=== PATIENT | female | born 1985 | race Caucasian/White ===

== ENCOUNTER → 2016-03-01 17:04 | Outpatient (CLI) | payer MEDICAID ==
[~2016-03-01 17:04] MED LIST: ACETAMINOPHEN500 M1 PO; BENADRYL25 MG PO; BENADRYL50 MG PO; PRENATAL COMPLE1 TAB PO
[2016-03-01 18:12] LABS: APPEARANCE CLEAR (CLEAR); BILIRUBIN NEGATIVE (NEGATIVE); COLOR YELLOW (YELLOW); GLUCOSE NEGATIVE (NEGATIVE); KETONE NEGATIVE (NEGATIVE); LEUKOCYTE ESTERASE NEGATIVE (NEGATIVE); NITRITE NEGATIVE (NEGATIVE); PROTEIN NEGATIVE (NEGATIVE); SPECIFIC GRAVITY 1.015 (1.005-1.020); UROBILINOGEN NORMAL (NORMAL)
== END | disposition home or self-care (01) ==
LOC: D.LDO 17:04
PROVIDERS: Obstetrics & Gynecology
DX: Z34.83 Encounter for supervision of other normal pregnancy, third trimester (principal); Z3A.29 29 weeks gestation of pregnancy; R51 Headache

== ENCOUNTER → 2016-03-16 12:51 | Outpatient (CLI) | payer MEDICAID | END | disposition home or self-care (01) | LOC: D.LDO 12:51 | DX: O36.8130 Decreased fetal movements, third trimester, not applicable or unspecified (principal); Z3A.31 31 weeks gestation of pregnancy ==

== ENCOUNTER → 2016-03-21 14:45 | Outpatient (CLI) | payer MEDICAID ==
[2016-03-21 16:33] LABS: APPEARANCE HAZY (CLEAR); BILIRUBIN NEGATIVE (NEGATIVE); COLOR DK YELLOW (YELLOW); GLUCOSE NEGATIVE (NEGATIVE); KETONE NEGATIVE (NEGATIVE); LEUKOCYTE ESTERASE TRACE (NEGATIVE); NITRITE NEGATIVE (NEGATIVE); PROTEIN TRACE mg/dL (NEGATIVE); SPECIFIC GRAVITY 1.015 (1.005-1.020); UROBILINOGEN NORMAL (NORMAL)
[2016-03-21 16:35] LABS: BACTERIA MODERATE /hpf (NONE SEEN); MUCUS <1+ /lpf (NONE SEEN); RED CELLS - URINE OCC /hpf (0-5); YEAST RARE /hpf (NONE SEEN)
[2016-03-21 17:15] LABS: ALBUMIN 2.3 g/dL (3.4-5.0); ALKALINE PHOSPHATASE 117 U/L (46-116); ALT (SGPT) 37 U/L (10-68); BILIRUBIN - TOTAL 0.17 mg/dL (0.2-1.3); CALC OSMOLALITY 272 mosm/kg (275-300); CALCIUM 8.7 mg/dL (8.5-10.1); CARBON DIOXIDE 23.4 mmol/L (21.0-32.0); CHLORIDE - SERUM 104 mmol/L (98-107); CREATININE - SERUM 0.5 mg/dL (0.6-1.3); GLUCOSE 85 mg/dL (74-106); POTASSIUM - SERUM 3.9 mmol/L (3.5-5.1); PROTEIN - SERUM 6.4 g/dL (6.4-8.2); SODIUM 138 mmol/L (136-145); UREA NITROGEN 8 mg/dL (7-18); eGFR NON AFRICAN AMERICAN > 90 mL/min (90-120)
[2016-03-27 03:09] LABS: CHENODEOXYCHOLIC ACID 2.1 umol/L (()); CHOLIC ACID 4.5 umol/L (()); TOTAL BILE ACIDS 8.6 umol/L (()); URSODEOXYCHOLIC ACID <0.10 umol/L (())
== END | disposition home or self-care (01) ==
LOC: D.LDO 14:45
PROVIDERS: Obstetrics & Gynecology
DX: O36.8130 Decreased fetal movements, third trimester, not applicable or unspecified (principal); Z3A.31 31 weeks gestation of pregnancy

== ENCOUNTER → 2016-03-26 17:24 | Outpatient (CLI) | payer MEDICAID | END | disposition home or self-care (01) | LOC: D.LDO 17:24 | DX: O24.419 Gestational diabetes mellitus in pregnancy, unspecified control (principal) ==

== ENCOUNTER → 2016-03-27 10:24 | Outpatient (CLI) | payer MEDICAID ==
--- NOTE | 2016-03-27 14:57 | NUR ---
Nutrition education for JUANITO: Pt reports she is now drinking only water and some milk. Pt is still using a little sugar in her coffee (now only drinking 1 cup of coffee a day). Pt skips breakfast sometimes; eats nonstarrchy vegetables almost daily; eats pizza every now and then. Reviewed CHO containing foods and th e affect CHO have on glucose. Stressed the importance of eating at consistent meal times to keep glucose under good control. Reviewed sample menus with emphasis on CHO. Pt agrees she has been overeating CHO foods which has caused her to have some high readings. Pt has been checking glucose 4 times a day and recording. Pt with good understanding of information provided. Provided pt with printed diet information and RDN name and phone number. RDN will be available if needed. Thank you for the consult.
== END | disposition home or self-care (01) ==
LOC: D.FANS 03-07 10:30
DX: O24.419 Gestational diabetes mellitus in pregnancy, unspecified control (principal)

== ENCOUNTER → 2016-03-30 11:09 | Outpatient (CLI) | payer MEDICAID ==
[2016-03-30 12:52] LABS: ALBUMIN 2.1 g/dL (3.4-5.0); ALKALINE PHOSPHATASE 197 U/L (46-116); ALT (SGPT) 514 U/L (10-68); BILIRUBIN - DIRECT 0.24 mg/dL (0.00-0.30); BILIRUBIN - INDIRECT 0.14 mg/dL (0.00-1.00); BILIRUBIN - TOTAL 0.38 mg/dL (0.2-1.3); CALC OSMOLALITY 272 mosm/kg (275-300); CALCIUM 8.5 mg/dL (8.5-10.1); CHLORIDE - SERUM 104 mmol/L (98-107); CREATININE - SERUM 0.5 mg/dL (0.6-1.3); GLUCOSE 107 mg/dL (74-106); POTASSIUM - SERUM 3.9 mmol/L (3.5-5.1); PROTEIN - SERUM 6.2 g/dL (6.4-8.2); SODIUM 137 mmol/L (136-145); UREA NITROGEN 9 mg/dL (7-18); URIC ACID 5.5 mg/dL (2.6-7.2); eGFR NON AFRICAN AMERICAN > 90 mL/min (90-120)
[2016-04-03 03:08] LABS: CHENODEOXYCHOLIC ACID 3.3 umol/L (()); CHOLIC ACID 16 umol/L (()); DEOXYCHOLIC ACID 2.5 umol/L (()); TOTAL BILE ACIDS 22 umol/L (()); URSODEOXYCHOLIC ACID <0.10 umol/L (())
== END | disposition home or self-care (01) ==
LOC: D.LDO 11:09
PROVIDERS: Obstetrics & Gynecology
DX: O24.419 Gestational diabetes mellitus in pregnancy, unspecified control (principal); Z3A.33 33 weeks gestation of pregnancy

== ENCOUNTER → 2016-05-18 10:33 | Outpatient (CLI) | payer MEDICAID | END | disposition home or self-care (01) | LOC: D.US 10:30 | DX: N63 Unspecified lump in breast (principal) ==

== ENCOUNTER 2016-08-17 17:58 | Emergency (ER) | payer BC | END 2016-08-17 20:31 | disposition home or self-care (01) | LOC: D.ER 17:58 | DX: S06.0X9A Concussion with loss of consciousness of unspecified duration, initial encounter (principal); V43.52XA Car driver injured in collision with other type car in traffic accident, initial encounter; Y93.89 Activity, other specified; Y92.410 Unspecified street and highway as the place of occurrence of the external cause; T14.8 Other injury of unspecified body region; S20.219A Contusion of unspecified front wall of thorax, initial encounter; I10 Essential (primary) hypertension; F17.200 Nicotine dependence, unspecified, uncomplicated ==

== ENCOUNTER 2018-03-14 11:47 | Emergency (ER) | payer MEDICAID ==
[~2018-03-14] VITALS: Ht 165.1 cm; Wt 86.4 kg
[2018-03-14 12:12] VITALS: BP 136/72; Ht 165.1 cm; Wt 86.4 kg
[2018-03-14 12:35] LABS: BASOPHILS 0.3 % (0-2); HEMATOCRIT 41.1 % (36.0-48.0); HEMOGLOBIN 13.3 g/dL (12-16); IMMATURE GRANULOCYTES 0.4 % (0-5); MCH 28.7 pg (26.0-34.0); MCHC 32.4 g/dL (31.0-37.0); MCV 88.8 fL (80.0-100.0); MEAN PLATELET VOLUME 9.7 fL (7.4-10.4); NEUTROPHILS 67.3 % (40-80); PLATELET COUNT 371 10x3/uL (130-400); RBC 4.63 10x6/uL (4.00-5.40); RDW 16.8 % (11.5-14.5); WBC 17.2 10x3/uL (4.8-10.8)
[2018-03-14 12:59] LABS: ALKALINE PHOSPHATASE 87 U/L (46-116); ALT (SGPT) 37 U/L (10-68); BILIRUBIN - TOTAL 0.22 mg/dL (0.2-1.3); CALC OSMOLALITY 275 mosm/kg (275-300); CALCIUM 9.1 mg/dL (8.5-10.1); CARBON DIOXIDE 27.2 mmol/L (21.0-32.0); CHLORIDE - SERUM 102 mmol/L (98-107); CREATININE - SERUM 0.8 mg/dL (0.6-1.3); GLUCOSE 84 mg/dL (74-106); POTASSIUM - SERUM 3.8 mmol/L (3.5-5.1); SODIUM 140 mmol/L (136-145); UREA NITROGEN 8 mg/dL (7-18); eGFR NON AFRICAN AMERICAN 87 mL/min (90-120)
[2018-03-14 13:03] LABS: APPEARANCE CLEAR (CLEAR); BILIRUBIN NEGATIVE (NEGATIVE); COLOR YELLOW (YELLOW); GLUCOSE NEGATIVE (NEGATIVE); KETONE NEGATIVE (NEGATIVE); NITRITE NEGATIVE (NEGATIVE); PROTEIN NEGATIVE (NEGATIVE); SPECIFIC GRAVITY 1.005 (1.005-1.020); UROBILINOGEN NORMAL (NORMAL)
[2018-03-14 13:04] LABS: BACTERIA MODERATE /hpf (NONE SEEN); EPITHELIAL CELLS 0-5 /hpf (0-5); MUCUS <1+ /lpf (NONE SEEN); RED CELLS - URINE OCC /hpf (0-5); YEAST RARE /hpf (NONE SEEN)
[2018-03-14 13:21] LABS: HCG - QUANTITATIVE (MATERNAL) 10730 mIU/mL
[2018-03-21 12:21] LABS: CHLAMYDIA TRACHOMATIS, NAA Negative (Negative)
[2018-03-25 13:35] VITALS: Ht 165.1 cm; Wt 86.4 kg
== END 2018-03-14 17:07 | disposition home or self-care (01) ==
LOC: D.ER 11:47
PROVIDERS: Family Medicine
DX: O20.9 Hemorrhage in early pregnancy, unspecified (principal); Z3A.01 Less than 8 weeks gestation of pregnancy; F17.200 Nicotine dependence, unspecified, uncomplicated

== ENCOUNTER 2018-03-18 16:18 | Observation (INO) | payer MEDICAID ==
[~2018-03-18] VITALS: Ht 165.1 cm; Wt 86.4 kg
[2018-03-18 16:28] VITALS: Ht 165.1 cm; Wt 86.4 kg
[2018-03-18 16:57] LABS: BASOPHILS 0.3 % (0-2); EOSINOPHILS 1.3 % (0-7); HEMATOCRIT 37.1 % (36.0-48.0); IMMATURE GRANULOCYTES 0.3 % (0-5); LYMPHOCYTES 20.2 % (15-50); MCH 28.7 pg (26.0-34.0); MCHC 32.3 g/dL (31.0-37.0); MCV 88.8 fL (80.0-100.0); MEAN PLATELET VOLUME 9.7 fL (7.4-10.4); MONOCYTES 8.9 % (2-11); PLATELET COUNT 348 10x3/uL (130-400); RBC 4.18 10x6/uL (4.00-5.40); RDW 17.1 % (11.5-14.5)
--- NOTE | 2018-03-18 17:09 | NUR ---
PT STABLE, CALL LIGHT WITHIN REACH, FRIEND AT BEDSIDE, WILL CONTINUE TO MONITOR.
[2018-03-18 18:00] VITALS: BP 138/66
--- NOTE | 2018-03-18 18:09 | NUR ---
PT STABLE, PROVIDED BRIEF AND PADS. PT RATES PAIN 5/10 AND WARM PACK PROVIDED, PT STABLE, CALL LIGHT WITHIN REACH, WILL CONTINUE TO MONITOR.
[2018-03-18 18:23] LABS: ALKALINE PHOSPHATASE 91 U/L (46-116); ALT (SGPT) 37 U/L (10-68); BILIRUBIN - TOTAL 0.09 mg/dL (0.2-1.3); CALC OSMOLALITY 281 mosm/kg (275-300); CARBON DIOXIDE 28.7 mmol/L (21.0-32.0); CHLORIDE - SERUM 105 mmol/L (98-107); CREATININE - SERUM 0.7 mg/dL (0.6-1.3); GLUCOSE 92 mg/dL (74-106); PROTEIN - SERUM 6.4 g/dL (6.4-8.2); SODIUM 142 mmol/L (136-145); UREA NITROGEN 9 mg/dL (7-18); eGFR NON AFRICAN AMERICAN > 90 mL/min (90-120)
[2018-03-18 18:48] LABS: HCG - QUANTITATIVE (MATERNAL) 7137 mIU/mL
[2018-03-18 19:00] VITALS: BP 131/71
--- NOTE | 2018-03-18 19:15 | NUR ---
ASSUMED CARE OF PATIENT, RESTING ON STRETCHER WITH MOTHER AT BEDSIDE. PATIENT WAITING FOR ULTRASOUND, STATES HER PAIN IS DOWN TO A 5/10 ON PAIN SCALE, NS INFUSING, VITAL SIGNS STABLE AT THIS TIME.
--- NOTE | 2018-03-18 19:19 | NUR ---
PT REPORT HANDED OFF TO JENNIFER LIANG. PT STABLE, CALL LIGHT WITHIN REACH, WILL CONTINUE TO MONITOR.
[2018-03-18 20:06] VITALS: BP 132/77
--- NOTE | 2018-03-18 20:10 | NUR ---
PATIENT TO ULTRASOUND VIA WHEELCHAIR PER TECH.
[2018-03-18 21:30] VITALS: BP 104/56
--- NOTE | 2018-03-18 21:45 | NUR ---
PT SITTING UP ON STRETCHER EATING A SANDWICH BOX, STATES SHE FEELS A LITTLE BETTER. ASSISTED TO THE BATHROOM, SHE STATES SHE IS STILL BLEEDING BUT IT HAS SLOWED DOWN.
--- NOTE | 2018-03-18 23:20 | NUR ---
PT TO LABOR UNIT ROOM 1278 FOR OVERNIGHT OBSERVATION. PT TO BED, BLEEDING LIGHT AT THIS TIME, PAD JUST CHANGED PRIOR TO ARRIVAL FROM ER. PATIENT MEDICATED WITH MORPHINE IN ER AND IS FALLING ASLEEP, UNABLE TO PERFORM ADMISSION ASSESSMENT AT THIS TIME.
--- NOTE | 2018-03-18 23:25 | NUR ---
SIDE RAILS UPX2, CALL REDD IN REACH. WILL MONITOR.
--- NOTE | 2018-03-19 00:05 | NUR ---
PT RESTING QUIETLY WITH EYES CLOSED, RESPIRATIONS EVEN AND NON LABORED, NO DISTRESS NOTED. BED LOCKED IN LOW POSITION, SIDE RAILS UP X2, CALL REDD AND TRAY TABLE IN REACH, WILL CONTINUE TO MONITOR.
--- NOTE | 2018-03-19 01:30 | NUR ---
PT RESTING QUIETLY WITH EYES CLOSED, NO DISTRESS NOTED. RESPIRATIONS EVEN AND NON LABORED. BED REMAINS LOCKED IN LOW POSITION, SIDE RAILS UPX2, CALL REDD AND TRAY TABLE IN REACH. WILL CONTINUE TO MONITOR.
--- NOTE | 2018-03-19 02:22 | NUR ---
IN TO CHECK ON PATIENT AT THIS TIME, PT EASILY AROUSED FROM SLEEP. PT UP TO BATHROOM. PT C/O CRAMPING PAIN AND REQUESTING PAIN MEDICATION.
--- NOTE | 2018-03-19 02:30 | NUR ---
PT BACK TO BED, VOIDED WITHOUT DIFFICULTY, PAD CHANGED, BLEEDING SMALL, RUBRA, NO CLOTS.
--- NOTE | 2018-03-19 02:31 | NUR ---
MOTRIN 600 MG PO PER MD ORDERS FOR CRAMPING PAIN
[2018-03-19 02:33] VITALS: BP 102/53
--- NOTE | 2018-03-19 05:44 | NUR ---
MORPHINE 4MG IN 9ML NORMAL SALINE GIVEN SLOW IVP AT THIS TIME PER MD ORDERS AND PATIENT REQUEST.
--- NOTE | 2018-03-19 05:50 | NUR ---
pulse ox placed at this time
[2018-03-19 07:11] VITALS: BP 94/50
--- NOTE | 2018-03-19 07:40 | NUR ---
DR CAAL HERE TO SEE PT. VERBAL DISCHARGE ORDERS RECEIVED.
--- NOTE | 2018-03-19 08:00 | NUR ---
SALINE LOCK REMOVED WITH CATH TIP INTACT. PRESSURE HELD AND BANDAIDE APPLIED. REG DIET SERVED.
--- NOTE | 2018-03-19 08:10 | NUR ---
PHONED DR CAAL FOR REVIEW OF DISCHARGE ORDER. NEW ORDERS RECEIVED.
[2018-03-19] MEDS ORDERED: CYTOTEC200 MCG PO (08:14)
[2018-03-19] MEDS ORDERED: HYDROCODON-ACE1 EAC7 PO (08:20)
--- NOTE | 2018-03-19 09:04 | NUR ---
DISCHARGE INST VERBAL AND WRITTEN GIVEN. PT STATES UNDERSTANDING. PT STATES THAT SHE HAD AN APPOINTMENT WITH [employer] AT HER [facility] [employer] THIS AM AT 0930. PT INSISTS THAT SHE WALK OUT OF HOSPITAL BUT STATES THAT SHE WILL NOT DRIVE AND WILL CALL SOMEONE TO PICK HER UP. STRESSED THE IMPORTANCE OF NOT DRIVING WHILE TAKING PAIN MEDICATION.
--- NOTE | 2018-03-19 09:20 | NUR ---
PT AMBULATES OUT OF ROOM. WHEN ASK STATES THAT SHE FEELS A LITTLE LIGHT HEADED. PT AGREES TO W/C BUT INSISTS THAT SHE WAIT FOR RIDE AT FRONT OF HOSPITAL. TO FRONT DOOR VIA W/C. DENIES OTHER NEEDS.
== END 2018-03-19 09:20 | disposition home or self-care (01) ==
LOC: D.ER 16:18 → D.EDHOLD 22:10 → D.LD 22:10 → OBSVTIME 22:10 → D.LD 22:21
PROVIDERS: Emergency Medicine; ADMIT Obstetrics & Gynecology
DX: O03.4 Incomplete spontaneous abortion without complication (principal)

== ENCOUNTER 2018-03-25 12:45 | Day surgery (SDC) | payer MEDICAID ==
[~2018-03-25] VITALS: Ht 165.1 cm; Wt 83.9 kg
[~2018-03-25 12:45] MED LIST changes: +CYTOTEC200 MCG PO; +HYDROCODON-ACE1 EAC7 PO
[2018-03-25 13:18] LABS: BASOPHILS 0.5 % (0-2); EOSINOPHILS 1.4 % (0-7); HEMATOCRIT 31.4 % (36.0-48.0); HEMOGLOBIN 9.9 g/dL (12-16); IMMATURE GRANULOCYTES 0.4 % (0-5); LYMPHOCYTES 26.1 % (15-50); MCH 28.2 pg (26.0-34.0); MCHC 31.5 g/dL (31.0-37.0); MCV 89.5 fL (80.0-100.0); MEAN PLATELET VOLUME 9.2 fL (7.4-10.4); MONOCYTES 5.6 % (2-11); PLATELET COUNT 418 10x3/uL (130-400); RBC 3.51 10x6/uL (4.00-5.40); RDW 16.9 % (11.5-14.5); WBC 13.1 10x3/uL (4.8-10.8)
[2018-03-25 13:35] VITALS: BP 118/65; Ht 165.1 cm; Wt 83.9 kg
== END 2018-03-25 17:15 | disposition home or self-care (01) ==
LOC: D.OPS 12:45
PROVIDERS: Obstetrics & Gynecology
DX: O03.4 Incomplete spontaneous abortion without complication (principal)

== ENCOUNTER 2018-07-31 19:00 | Outpatient (CLI) | payer MEDICAID ==
[2018-03-25 13:35] VITALS: BMI 30.8
== END 2018-07-31 23:59 | disposition home or self-care (01) ==
LOC: D.MAMMO 19:00
PROVIDERS: ATTEND Obstetrics & Gynecology
DX: R92.8 Other abnormal and inconclusive findings on diagnostic imaging of breast (principal)

== ENCOUNTER 2018-09-27 20:38 | Emergency (ER) | payer MEDICAID ==
[~2018-09-27] VITALS: Ht 165.1 cm; Wt 72.7 kg
[2018-09-27 21:19] VITALS: Ht 165.1 cm; Wt 72.7 kg
[2018-09-27] MEDS ORDERED: HYDROCODON-ACE1 EAC7 PO (22:13)
[2018-09-27] MEDS ORDERED: CLEOCIN HCL300 MG PO (22:13)
[2018-09-27 22:29] VITALS: BP 121/72
== END 2018-09-27 22:30 | disposition home or self-care (01) ==
LOC: D.ER 20:38
DX: K02.9 Dental caries, unspecified (principal); K04.7 Periapical abscess without sinus

== ENCOUNTER 2020-07-05 22:52 | Emergency (ER) | payer BC ==
[~2020-07-05] VITALS: Ht 165.1 cm; Wt 72.7 kg
[~2020-07-05 22:52] MED LIST changes: +CLEOCIN HCL300 MG PO
[2020-07-05 22:56] VITALS: Ht 165.1 cm; Wt 72.7 kg
[2020-07-05 23:41] LABS: BASOPHILS 0.6 % (0-2); EOSINOPHILS 1.1 % (0-7); HEMATOCRIT 39.9 % (36.0-48.0); LYMPHOCYTES 20.1 % (15-50); MCH 29.8 pg (26.0-34.0); MCHC 32.6 g/dL (31.0-37.0); MCV 91.4 fL (80.0-100.0); MEAN PLATELET VOLUME 7.3 fL (7.4-10.4); MONOCYTES 9.3 % (2-11); NEUTROPHILS 68.9 % (40-80); PLATELET COUNT 377 10x3/uL (130-400); RBC 4.37 10x6/uL (4.00-5.40); RDW 14.3 % (11.5-14.5); WBC 14.9 10x3/uL (4.8-10.8)
[2020-07-05 23:52] LABS: HCG URINE NEGATIVE (NEGATIVE)
[2020-07-05 23:53] LABS: BILIRUBIN NEGATIVE (NEGATIVE); KETONE NEGATIVE (NEGATIVE); NITRITE NEGATIVE (NEGATIVE); UROBILINOGEN NORMAL mg/dL (< 2)
[2020-07-05 23:53] LABS: CALC OSMOLALITY 277 mosm/kg (275-300); CALCIUM 8.8 mg/dL (8.5-10.1); CHLORIDE - SERUM 102 mmol/L (98-107); CREATININE - SERUM 0.8 mg/dL (0.6-1.3); GLUCOSE 81 mg/dL (74-106); SODIUM 139 mmol/L (136-145); UREA NITROGEN 15 mg/dL (7-18); eGFR NON AFRICAN AMERICAN 86 mL/min (90-120)
[2020-07-05 23:54] LABS: BACTERIA MODERATE HPF (NONE SEEN); SQUAMOUS EPITHELIAL 0-5 HPF (0-4); WHITE CELLS - URINE 0-5 HPF (0-4)
[2020-07-05 23:57] LABS: UDS - AMPHET POSITIVE QUAL (NEGATIVE); UDS - BARB NEGATIVE QUAL (NEGATIVE); UDS - BENZO NEGATIVE QUAL (NEGATIVE); UDS - COCAINE NEGATIVE QUAL (NEGATIVE); UDS - OPIATE NEGATIVE QUAL (NEGATIVE); UDS - PCP NEGATIVE QUAL (NEGATIVE); UDS - THC NEGATIVE QUAL (NEGATIVE)
[2020-07-05 23:59] LABS: ALBUMIN 3.5 g/dL (3.4-5.0); ALKALINE PHOSPHATASE 91 U/L (30-120); ALT (SGPT) 40 U/L (10-68); BILIRUBIN - TOTAL 0.18 mg/dL (0.2-1.3); C-REACTIVE PROTEIN 2.7 mg/dL (0.0-0.9); PROTEIN - SERUM 7.3 g/dL (6.4-8.2)
[2020-07-06] MEDS ORDERED: AMOXICILLIN500 M1 PO (03:09)
[2020-07-06 04:06] VITALS: BP 139/97
== END 2020-07-06 04:06 | disposition home or self-care (01) ==
LOC: D.ER 22:52
PROVIDERS: Family Medicine
DX: K04.7 Periapical abscess without sinus (principal)

== ENCOUNTER 2020-07-09 01:07 | Emergency (ER) | payer BC ==
[~2020-07-09 01:07] MED LIST changes: +AMOXICILLIN500 M1 PO
[2020-07-09 01:08] VITALS: Ht 165.1 cm
[2020-07-09 02:29] LABS: BASOPHILS 0.6 % (0-2); EOSINOPHILS 0.9 % (0-7); HEMATOCRIT 38.5 % (36.0-48.0); HEMOGLOBIN 12.5 g/dL (12-16); LYMPHOCYTES 15.5 % (15-50); MCH 29.9 pg (26.0-34.0); MCHC 32.5 g/dL (31.0-37.0); MEAN PLATELET VOLUME 7.4 fL (7.4-10.4); MONOCYTES 7.9 % (2-11); NEUTROPHILS 75.1 % (40-80); PLATELET COUNT 431 10x3/uL (130-400); RBC 4.19 10x6/uL (4.00-5.40); RDW 13.9 % (11.5-14.5); WBC 16.9 10x3/uL (4.8-10.8)
[2020-07-09 02:30] LABS: CALC OSMOLALITY 274 mosm/kg (275-300); CALCIUM 8.6 mg/dL (8.5-10.1); CARBON DIOXIDE 29.7 mmol/L (21.0-32.0); CHLORIDE - SERUM 100 mmol/L (98-107); CREATININE - SERUM 0.8 mg/dL (0.6-1.3); GLUCOSE 111 mg/dL (74-106); INR 0.99 (0.85-1.17); POTASSIUM - SERUM 3.9 mmol/L (3.5-5.1); PROTIME 12.1 SECONDS (11.6-15.0); SODIUM 138 mmol/L (136-145); UREA NITROGEN 6 mg/dL (7-18); eGFR NON AFRICAN AMERICAN 86 mL/min (90-120)
[2020-07-09 02:36] LABS: ALBUMIN 3.2 g/dL (3.4-5.0); ALKALINE PHOSPHATASE 122 U/L (30-120); ALT (SGPT) 34 U/L (10-68); BILIRUBIN - TOTAL 0.28 mg/dL (0.2-1.3); PROTEIN - SERUM 7.4 g/dL (6.4-8.2)
[2020-07-09 05:30] VITALS: BP 133/83
== END 2020-07-09 09:45 | disposition other institution (70) ==
LOC: D.ER 01:07
PROVIDERS: Family Medicine
DX: K04.7 Periapical abscess without sinus (principal); R25.2 Cramp and spasm